=== PATIENT | female | born 1940 | race Two or more races ===

== ENCOUNTER 2017-09-28 10:10 | Outpatient (CLI) | payer MEDICARE, OTHER | END 2017-09-28 23:59 | disposition home health service (06) | LOC: WOU 10:10 | PROVIDERS: ATTEND Surgery | DX: T81.31XA Disruption of external operation (surgical) wound, not elsewhere classified, initial encounter (principal); R09.02 Hypoxemia; R26.2 Difficulty in walking, not elsewhere classified; Z85.3 Personal history of malignant neoplasm of breast; Z91.19 Patient's noncompliance with other medical treatment and regimen; J70.1 Chronic and other pulmonary manifestations due to radiation; J44.9 Chronic obstructive pulmonary disease, unspecified; E07.9 Disorder of thyroid, unspecified; I48.91 Unspecified atrial fibrillation; Z99.81 Dependence on supplemental oxygen | CPT/HCPCS: 11043; A6402; A6407; G0463 ==